=== PATIENT | male | born 1940 | race Caucasian/White ===

== ENCOUNTER → 2018-11-16 | Outpatient (CLI) | payer MEDICARE ==
--- NOTE | 2018-11-16 14:54 | REP ---
REASON: Pain after trauma. RIGHT RIBS: FINDINGS: Five views of the ribs show no acute fracture or destructive osseous lesion. The accompanying frontal view of the chest shows no cardiomegaly, infiltrates, effusions or pneumothoraces. IMPRESSION: Negative ribs series. Electronically Signed by Kenan St DO 11/16/2018 03:15 P
== END ==
LOC: M WUC 10:37
PROVIDERS: ATTEND Physician Assistant
DX: S20.211A Contusion of right front wall of thorax, initial encounter (principal); X58.XXXA Exposure to other specified factors, initial encounter; Y92.89 Other specified places as the place of occurrence of the external cause

== ENCOUNTER 2019-09-19 04:09 | Observation (INO) | payer MEDICARE ==
[~2019-09-19] VITALS: Ht 170.2 cm; Wt 93.6 kg
[2019-09-19] MEDS ORDERED: METF500T13 PO (04:21)
[2019-09-19] MEDS ORDERED: LOSA50TA88 PO (04:21)
[2019-09-19] MEDS ORDERED: METF-839 PO (04:21)
[2019-09-19] MEDS ORDERED: GLIM4TAB5 PO (04:21)
[2019-09-19] MEDS ORDERED: ZOLO100T PO (04:23)
[2019-09-19] MEDS ORDERED: SIMV10TA21 PO (04:23)
[2019-09-19] MEDS ORDERED: NS 500 ML IV ONE ×2 (04:30→08:30)
[2019-09-19 04:58] LABS: APPEARANCE, URINE CLEAR (CLEAR); BACTERIA, URINE AUTO NEGATIVE (NEGATIVE); BILIRUBIN, URINE AUTO NEGATIVE (NEGATIVE); BLOOD, URINE BLOOD 1+ (NEGATIVE); COLOR, URINE STRAW (YELLOW); GLUCOSE, URINE (UA) AUTO 1+ mg/dL (NEGATIVE); KETONE, URINE AUTO NEGATIVE (NEGATIVE); LEUKOCYTE ESTERASE, URINE AUTO NEGATIVE (NEGATIVE); NITRITE, URINE AUTO NEGATIVE (NEGATIVE); PROTEIN, URINE AUTO 1+ mg/dL (NEGATIVE); RBC, URINE AUTO 10 /HPF (0-3); SPECIFIC GRAVITY URINE AUTO 1.012 (1.002-1.035); SQUAMOUS EPITHELIAL CELL UR AU 0 /HPF (0-6); UROBILINOGEN, URINE AUTO 0.2 mg/dL (0.0-2.0); WBC, URINE AUTO 0 /HPF (0-3)
[2019-09-19 05:07] LABS: BASO % 0.5 % (0.0-1.0); EOS # 0.1 10^3/uL (0.0-0.5); EOS % 1.2 % (0.0-3.0); HEMATOCRIT 44.6 % (42.0-52.0); HEMOGLOBIN 14.8 g/dl (13.5-17.5); LYMPH # 0.6 10^3/uL (1.5-5.0); LYMPH % 6.9 % (24.0-44.0); MEAN CORPUSCULAR HEMOGLOBIN 29.9 pg (27.0-33.0); MEAN CORPUSCULAR HGB CONC 33.2 g/dl (32.0-36.5); MEAN CORPUSCULAR VOLUME 90.1 fl (80.0-96.0); MONO # 0.5 10^3/uL (0.0-0.8); MONO % 6.2 % (0.0-5.0); NEUTROPHILS # 7.3 10^3/uL (1.5-8.5); NEUTROPHILS % 84.7 % (36.0-66.0); PLATELET COUNT, AUTOMATED 140 10^3/uL (150-450); RED BLOOD COUNT 4.95 10^6/uL (4.30-6.10); WHITE BLOOD COUNT 8.6 10^3/uL (4.0-10.0)
[2019-09-19 05:15] LABS: INR 1.02; PROTHROMBIN TIME 13.1 SECONDS (11.8-14.0)
[2019-09-19] MEDS ORDERED: MORPHINE 2 MG/ML 1ML VIAL (J2270) IV ONE (05:15)
[2019-09-19 05:16] LABS: PARTIAL THROMBOPLASTIN TIME 29.5 SECONDS (25.0-38.4)
[2019-09-19 05:39] LABS: BILIRUBIN,DIRECT 0.1 MG/DL (0.0-0.2); BILIRUBIN,TOTAL 0.5 MG/DL (0.2-1.0); CALCIUM LEVEL 8.3 MG/DL (8.8-10.2); CREATININE FOR GFR 1.49 MG/DL (0.70-1.30); GLOMERULAR FILTRATION RATE 48.6 (>42); POTASSIUM SERUM 4.4 MEQ/L (3.5-5.1); TOTAL PROTEIN 6.9 GM/DL (6.4-8.2)
[2019-09-19] MEDS ORDERED: TAMSULOSIN 0.4 MG CAP PO ONE (06:00)
[2019-09-19] MEDS ORDERED: KETOROLAC 30 MG/ML 1ML VIAL IV ONE (06:00)
--- NOTE | 2019-09-19 06:39 | REPVR ---
PROCEDURE INFORMATION: Exam: CT Abdomen And Pelvis Without Contrast Exam date and time: 09/19/2019 5:51 AM Age: 79 years old Clinical indication: Abdominal pain; Flank; Left; Additional info: Llq pain/l colic TECHNIQUE: Imaging protocol: Computed tomography of the abdomen and pelvis without contrast. Radiation optimization: All CT scans at this facility use at least one of these dose optimization techniques: automated exposure control; mA and/or kV adjustment per patient size (includes targeted exams where dose is matched to clinical indication); or iterative reconstruction. COMPARISON: No relevant prior studies available. FINDINGS: Lungs: There is bilateral posterior dependent lung atelectasis. Liver: There is 2.2 cm and 2.4 cm right hepatic lobe simple cysts. Gallbladder and bile ducts: Normal. No calcified stones. No ductal dilation. Pancreas: Normal. No ductal dilation. Spleen: The spleen is mildly enlarged measuring 14.9 cm in maximum dimension.. Adrenals: Normal. No mass. Kidneys and ureters: There is a 1-2 mm right renal stone. There is no right ureteral stone or hydronephrosis. There is a 1 cm right upper renal pole cyst measuring high internal density of 42 Hounsfield units best seen on axial image 66. There are 2 stones collectively measuring around 5 mm in the distal left ureter with moderate proximal hydronephrosis and hydroureter with extensive left perinephric and periureteral stranding in addition to fluid in the perinephric sprays. There is a 3-4 mm left lower renal pole stone. Stomach and bowel: There is sigmoid colon diverticulosis. Appendix: No evidence of appendicitis. Intraperitoneal space: Unremarkable. No free air. No significant fluid collection. Vasculature: There is mild aortic mural calcifications. Lymph nodes: Unremarkable. No enlarged lymph nodes. Bladder: Unremarkable as visualized. Reproductive: Unremarkable as visualized. Bones/joints: The patient is status post L4 laminectomy with surgical fixation of L4 and L5 with grossly intact rods and screws. There is diffuse lumbar spine facet arthrosis most pronounced distally. There is significant L5-S1 disc degenerative changes. There is grade 1 retrolisthesis of L3 on L4. Soft tissues: Unremarkable. IMPRESSION: 1. Two contiguous stones collectively measuring 5 mm in the distal left ureter with moderate proximal hydronephrosis coupled with extensive perinephric and periureteral edema in addition to fluid in the perirenal space suggestive of forniceal rupture. Underlying infection cannot be excluded. 2. 1-2 mm right renal nonobstructing stone. 3. 1 cm right upper renal pole cyst measuring higher than simple fluid density. This possibly represents a cyst containing proteinaceous material or blood products-[place] 2 F. follow-up and further characterization with ultrasound and or MRI with contrast is suggested. 4. Mild splenomegaly. 5. Simple right hepatic lobe cyst. 6. Sigmoid colon diverticulosis. Electronically signed by: Mario Galan On 09/19/2019 06:38:57 AM
[2019-09-19] MEDS ORDERED: hydrALAZINE 20MG/ML 1ML VIAL (J0360 PER 20MG) IV STA (06:45)
--- NOTE | 2019-09-19 07:57 | REPVR ---
PROCEDURE INFORMATION: Exam: US Retroperitoneal Limited, Kidneys Exam date and time: 09/19/2019 7:40 AM Age: 79 years old Clinical indication: Abdominal pain; Flank; Left; Additional info: Abnormal CT - see result - per rad TECHNIQUE: Imaging protocol: Real-time ultrasound of the retroperitoneum with image documentation. Examination was focused on the kidneys. COMPARISON: CT ABD PELVIS W/O CONTRAST 09/19/2019 5:44 AM FINDINGS: Right kidney: The right kidney measures 10.8 x 4.7 x 4.9 centimetres.. There is a right mid renal pole stone measuring 6 mm. There is a 5 mm right lower renal pole stone. The there is no right-sided hydronephrosis. There is a 9 mm right upper renal pole hypoechoic cyst however posterior acoustic enhancement is not seen. There is a isoechoic area in the right mid renal pole extending to the medulla measuring 2.5 x 2.6 cm. Left kidney: The left kidney measures a 0.9 x 5.1 x 5.9 cm. There is mild left renal mass, stone or cyst. There is mild left-sided hydronephrosis. Bladder: There is minimal distention of the urinary bladder which appears grossly unremarkable. Ureteral jets are not seen . IMPRESSION: 1. Mild left-sided hydronephrosis. 2. Right-sided nephrolithiasis with no hydronephrosis. 3. 9 mm right upper renal pole hypoechoic nodule corresponding to the dense nodule seen on CT scan without posterior acoustic enhancement. This could represent a cyst however its simple nature could not be established on this exam. Further characterization with MRI with contrast or follow-up ultrasound in few months is suggested. 4. Focal isoechoic area in the mid right renal pole possibly representing prominent column of Celestino. This can be better evaluated with the above suggested MRI. Electronically signed by: Mario Galan On 09/19/2019 07:57:23 AM
[2019-09-19] MEDS ORDERED: IBUP1TAB6 PO (08:45)
[2019-09-19] MEDS ORDERED: CYAN100049 PO (08:45)
[2019-09-19] MEDS ORDERED: VITMTA PO (08:45)
[2019-09-19] MEDS ORDERED: VITAD1000T PO (08:45)
[2019-09-19] MEDS ORDERED: LIDOCAINE 2% 100MG/5ML SDV (FOR ANES.) As Ordered ONE (09:05)
[2019-09-19] MEDS ORDERED: propofoL 200 MG/20 ML VIAL As Ordered ONE (09:05)
[2019-09-19] MEDS ORDERED: fentaNYL 100 MCG/2 ML INJECTION (J3010) As Ordered ONE ×2 (09:05→12:00)
[2019-09-19] MEDS ORDERED: ONDANSETRON 4MG/2ML VIAL As Ordered ONE (09:06)
[2019-09-19] MEDS ORDERED: dexameTHASONE 4 MG/ML 1ML VIAL (J1100 PER 1MG) As Ordered ONE (09:06)
[2019-09-19] MEDS ORDERED: hydrALAZINE 20MG/ML 1ML VIAL (J0360 PER 20MG) IV PRN (09:15)
--- NOTE | 2019-09-19 09:27 | HPEPDOC ---
[facility] Medical History & Physical Date of Admission Sep 19, 2019 Date of Service: Sep 19, 2019 Attending Physician: Sharon Pang MD History and Physical CHIEF COMPLAINT: abdominal pain HISTORY OF PRESENT ILLNESS: The patient is a 79-year-old male with a past mental history of hypertension, diabetes mellitus type 2, hyperlipidemia, history of kidney stones who presents to [facility] with the chief complaint of acute onset of left- sided groin and abdominal/flank pain. Patient states that at approximately 11 PM on 09/18/19 he experienced sudden left lower abdominal pain that woke him up from sleep. Pain radiated to the left groin and around the left flank, 10/10, sharp, constant, similar to an episode 1 year ago of a kidney stone that he eventually passed. The patient took an ibuprofen 800 mg x 1, oxycontin x 1 but with no relief. He later had episodes of nonbloody vomiting x 2, nausea, The patient woke his up who then took him to the ER. The patient admits to eating and drinking well, urinating normal. Denies chest pain, shortness of breath, lightheadedness, dizziness, cough, fevers, chills, rashes, recent illness. In the emergency room, blood pressure systolic was as high as 388773 mmHg, he was given 5 mg of IV hydralazine which helped decrease his blood pressure slightly. Pain was likely the cause of his uncontrolled hypertension. CT abdomen and pelvis with contrast showed 2 stones collectively measuring 5 mm in the distal left ureter with moderate proximal hydronephrosis coupled with extensive perinephric and periureteral edema in addition to fluid in the perirenal space suggestive of forniceal rupture. There was also 12 millimeter right renal m onitor instructed stone and a 170 her right upper pole cyst measuring higher than simple fluid density. Follow-up ultrasound or MRI was suggested. Urology was consulted from ER and it was suggested to take to OR for surgery. Admitting diagnosis was Left forniceal rupture 2/2 to two obstructing distal left ureteral stones, hypertensive urgency. At time of admission , patient denied chest pain, n/v/d, fevers or chills. ROS: Negative except for what is mentioned above. PAST MEDICAL HISTORY: 1. HTN 2. Hx of kidney stones 3. DM type II, controlled 4. HLD 5. Obsessive compulsive disorder 6. Vitamin D deficiency 7. Vitamin B12 deficiency 8. Hx of palpitations? 9. Mild memory loss,age related PAST SURGICAL HISTORY: 1. Left foot bone fusion, 04/2019 2. L3-L5 bone fusion 3. Tonsillectomy 4. Melanoma skin removal on nose SOCIAL HISTORY: Denies smoking, illicit drug use. Drinks a glass of wine nightly as prescribed by PCP. PCP- Dr. Heather Nam, [place]- Dr. San, FAMILY HISTORY: Father: Dementia. at 91 y/o Mother: Depression, HTN, DM type II. at 74 y/o. Siblings: sister #1- cancer, breast. 63 y/o. sister #2- lupus, CAD. 60 y/o. ALLERGIES: Please see below. HOME MEDICATIONS: Please see below. PHYSICAL EXAMINATION: CONSTITUTIONAL: No acute distress, resting comfortably, AAO x 3 EYES: PERRLA, EOM intact HENT, MOUTH: Normocephalic, atraumatic, moist mucous membranes, NECK: SUPPLE, no JVD, no lymphadenopathy, no carotid bruit CV: Regular rate and rhythm, S1S2 normal, no murmurs/rubs/gallops RESPIRATORY: Clear to auscultation bilaterally, no rales/rhonchi/wheezes GI: Obese abdomen, tenderness of palpation to the left lower quadrant, no CVA tenderness, no groin tenderness. BS positive in 4 quadrants, soft, nondistended, no rebound or guarding, no organomegaly : Deferred MUSCULOSKELETAL: Normal ROM. No cyanosis, clubbing, swelling, joint deformity, extremity edema INTEGUMENTARY: Intact, no rashes, no lesions, no erythema NEUROLOGIC: Cranial Nerves II-XII are intact, no focal deficits PSYCHIATRIC: Mood and affect are normal LABORATORY DATA: Please see below IMAGING: CT abd/pelvis: 1. Two contiguous stones collectively measuring 5 mm in the distal left ureter with moderate proximal hydronephrosis coupled with extensive perinephric and periureteral edema in addition to fluid in the perirenal space suggestive of forniceal rupture. Underlying infection cannot be excluded. 2. 1-2 mm right renal nonobstructing stone. 3. 1 cm right upper renal pole cyst measuring higher than simple fluid density. This possibly represents a cyst containing proteinaceous material or blood products-[place]ak 2 F. follow-up and further characterization with ultrasound and or MRI with contrast is suggested. 4. Mild splenomegaly. 5. Simple right hepatic lobe cyst. 6. Sigmoid colon diverticulosis. Renal US: 1. Mild left-sided hydronephrosis. 2. Right-sided nephrolithiasis with no hydronephrosis. 3. 9 mm right upper renal pole hypoechoic nodule corresponding to the dense nodule seen on CT scan without posterior acoustic enhancement. This could represent a cyst however its simple nature could not be established on this exam. Further characterization with MRI with contrast or follow-up ultrasound in few months is suggested. 4. Focal isoechoic area in the mid right renal pole possibly representing prominent column of Celestino. This can be better evaluated with the above suggested MRI. ASSESSMENT: 79 y/o M admitted for left forniceal rupture 2/2 to two obstructing distal left ureteral stones, hypertensive urgency PLAN: 1. Left forniceal rupture 2/2 to obstructing stones. NPO, pain regimen in place, OR today. Urology consulted. 2. Hypertensive urgency. Hx of controlled HTN, likely 2/2 to uncontrolled pain. Hydralazine helped. NPO so can give another dose of IV hydralazine PRN. 3. DM type II. States to be well controlled. ISS, FS Q6hrs, NPO and will start on consistent carb diet when out of surgery. 4. OCD. Stable. C/w home meds when taking PO 5. HLD. Resume home meds after surgery. 6. DVT px. SCDs, TEDs. DISPOSITION: Plan is discharge home when medically improved. Vital Signs Vital Signs Date Time Temp Pulse Resp B/P (MAP) Pulse Ox O2 Delivery O2 Flow Rate FiO2 09/19/19 07:31 70 95 09/19/19 07:30 142/68 (92) 09/19/19 05:16 16 09/19/19 04:10 97.9 Room Air Laboratory Data Labs 24H Laboratory Tests 2 09/19/19 04:48: Urine Color STRAW, Urine Appearance CLEAR, Urine pH 6.0, Urine Specific [place] 1.012, Urine Protein 1+H, Urine Glucose (Auto)(UA) 1+H, Urine Ketones (Auto) NEGATIVE, Urine Blood 1+H, Urine Nitrite NEGATIVE, Urine Bilirubin NEGATIVE, Urine Urobilinogen 0.2, Urine Leukocyte Esterase (Auto) NEGATIVE, Urine WBC (Auto) 0, Urine RBC (Auto) 10H, Urine Hyaline Casts (Auto) 0, Urine Bacteria (Auto) NEGATIVE, Urine Squamous Epithelial Cells 0, Urine Sperm (Auto) 09/19/19 04:51: Immature Granulocyte % (Auto) 0.5, Neutrophils (%) (Auto) 84.7H, Lymphocytes (%) (Auto) 6.9L, Monocytes (%) (Auto) 6.2H, Eosinophils (%) (Auto) 1.2, Basophils (%) (Auto) 0.5, Neutrophils # (Auto) 7.3, Lymphocytes # (Auto) 0.6L, Monocytes # (Auto) 0.5, Eosinophils # (Auto) 0.1, Basophils # (Auto) 0.0, Nucleated Red Blood Cells % (auto) 0.0, Prothrombin Time 13.1, Prothromb Time International Ratio 1.02, Activated Partial Thromboplast Time 29.5, Anion Gap 10, Glomerular Filtration Rate 48.6, Calcium Level 8.3L, Total Bilirubin 0.5, Direct Bilirubin 0.1, Aspartate Amino Transf (AST/SGOT) 20, Alanine Aminotransferase (ALT/SGPT) 32, Alkaline Phosphatase 45, Total Protein 6.9, Albumin 4.0, Albumin/Globulin Ratio 1.4, Lipase 121 09/19/19 08:21: CBC/BMP Laboratory Tests 09/19/19 04:51 Microbiology Microbiology 09/19/19 Blood Culture, Received Pending Home Medications Scheduled Cholecalciferol (Vitamin D3) (Vitamin D3) 1,000 Unit Tablet, 1,000 UNITS PO DAILY Cyanocobalamin (Vitamin B-12) (Vitamin B-12) 1,000 Mcg Tablet, 1,000 MCG PO DAILY Glimepiride (Glimepiride) 4 Mg Tablet, 4 MG PO BID Losartan Potassium (Losartan Potassium) 50 Mg Tablet, 50 MG PO QHS Metformin HCl (Metformin HCl) 500 Mg Tablet, 500 MG PO QAM Metformin HCl (Metformin HCl) 500 Mg Tablet, 1,000 MG PO QHS Multivitamins (Thera M Plus Tablet) 1 Each Tablet, 1 TAB PO DAILY Sertraline Hcl (Zoloft) 100 Mg Tablet, 100 MG PO DAILY Simvastatin (Simvastatin) 10 Mg Tablet, 10 MG PO QHS Scheduled PRN Acetaminophen (Acetaminophen) 325 Mg Tablet, 650 MG PO Q6HP PRN for pain or fever Allergies Coded Allergies: Penicillins (Verified Allergy, Mild, rash, 09/19/19) hydrocodone (Verified Allergy, Mild, rash, 09/19/19) A-FIB/CHADSVASC A-FIB History Current/History of A-Fib/PAF?: No Current PO Anticoag Therapy: No Age/Risk Factor Scoring CHADSVASC: CHADSVASC Response (Comments) Value Age Risk Factor Age >/= 75 years old 2 Gender Risk Factor Male 0 Hx of CHF No 0 Hx of HTN Yes 1 Hx of Stroke/TIA/or VTE No 0 Hx of Diabetes Yes 1 Hx of Vascular Disease No 0 Total 4 Treatment Treatment ordered: NONE Other anticoagulant ordered: Sharon Sanchez MD Sep 19, 2019 09:27
[2019-09-19] MEDS ORDERED: GLUCAGON INJ 1MG VIAL SC PRN (09:45)
[2019-09-19] MEDS ORDERED: GLUCOSE 4GM CHEW TABLET PO PRN (09:45)
[2019-09-19] MEDS ORDERED: MORPHINE 2 MG/ML 1ML VIAL (J2270) IV PRN (09:45)
[2019-09-19] MEDS ORDERED: DEXTROSE 50% 50 ML SYRINGE IV PRN (09:45)
[2019-09-19] MEDS ORDERED: ISOVUE-300 61% 50ML VIAL As Ordered ONE (10:58)
[2019-09-19] MEDS ORDERED: ceFAZolin 2 GM/D5W 50 ML IV BAG (J0690 PER 500MG) As Ordered ONE (11:12)
--- NOTE | 2019-09-19 11:26 | SMCUROLCON ---
Urology Consultation General Date of Consultation 09/19/19 Reason For Consultation This patient is seen for Hypertensive Urgency. History of Present Illness This is a 79 y/o M w/ a PMH significant for HTN, DM2, and HL, presenting to the ER w/ worsening L flank pain since yesterday evening. The patient notes the pain came on suddenly. It was associated w/ n/v. He denies dysuria or fevers/chills. Despite pain medication in the ER he continued to have severe pain. A noncontrast CT A/P done in the ER was notable for two contiguous stones collectively measuring 5 mm in the distal L ureter w/moderate proximal hydronephrosis, extensive perinephric and periureteral edema in addition to fluid in the perirenal space suggestive of forniceal rupture. It was also notable fora complex appearing R renal cyst. Past Medical History Medical History see HPI Surgical Hstory b/l cataract surgery L ankle surgery Medications Current Medications Current Medications Medications (Trade) Dose Ordered Sig/Raj Route PRN Reason Start Time Stop Time Status Last Admin Dose Admin Dextrose (Dextrose 50%) 25 ml ASDIRECTED PRN IV SEE LABEL COMMENTS 09/19/19 09:45 Glucagon (Glucagon) 1 mg ASDIRECTED PRN SC SEE LABEL COMMENTS 09/19/19 09:45 Glucose (Glucose) 16 GM ASDIRECTED PRN PO SEE LABEL COMMENTS 09/19/19 09:45 Home Med (Med Rec Complete!) ASDIRECTED XX 09/19/19 08:45 09/19/19 08:52 DC Hydralazine HCl (Apresoline) 5 mg STAT STAT IV 09/19/19 06:45 09/19/19 06:46 DC 09/19/19 06:55 Hydralazine HCl (Apresoline) 10 mg Q6HP PRN IV HYPERTENSION 09/19/19 09:15 Insulin Human Lispro (HumaLOG INSULIN) SEE PROTOCOL TABLE Q6H SC 09/19/19 12:00 Morphine Sulfate (Morphine Sulfate Inj) 1 mg Q6HP PRN IV MODERATE/SEVERE PAIN (PS 5-10) 09/19/19 09:45 Sodium Chloride 1,000 ml @ 100 mls/hr Q10H IV 09/19/19 13:30 Allergies Allergies: Coded Allergies: Penicillins (Verified Allergy, Mild, rash, 09/19/19) hydrocodone (Verified Allergy, Mild, rash, 09/19/19) Review of Systems Constitutional: Denies: Fever, Chills, Sweats, Weakness, Malaise, Other Skin: Denies: Rash, Lesions, Breakdown, Nail Changes Pulmonary: Denies: Dyspnea, Cough Cardiovascular: Denies Chest Pain, Denies Palpitations Gastrointestinal: Reports: Nausea, Vomiting Genitourinary: Denies: Dysuria, Frequency, Incontinence, Hematuria Musculoskeletal: Reports: Back Pain (L flank) Neurological: Denies: Weakness, Numbness, Incoordination, Change in Speech Psych: Reports: Mood Normal Physical Examination General Exam: Alert, Cooperative, No Acute Distress Chest Exam: Normal air movement Heart Exam: Regular Rhythm Abdomen Exam: Soft Skin Exam: Nl turgor and temperature Neuro Exam: Normal Speech Psych Exam: Mental status NL, Mood NL Vital Signs/I&O Vital Signs Date Time Temp Pulse Resp B/P (MAP) Pulse Ox O2 Delivery O2 Flow Rate FiO2 09/19/19 10:45 97.5 69 20 159/76 (103) 94 09/19/19 04:10 Room Air I&O- Last 24 Hours up to 6 AM 09/19/19 06:00 Intake Total 500 ml Balance 500 ml Laboratory Data 24H Labs Laboratory Tests 2 09/19/19 04:48: Urine Color STRAW, Urine Appearance CLEAR, Urine pH 6.0, Urine Specific [place] 1.012, Urine Protein 1+H, Urine Glucose (Auto)(UA) 1+H, Urine Ketones (Auto) NEGATIVE, Urine Blood 1+H, Urine Nitrite NEGATIVE, Urine Bilirubin NEGATIVE, Urine Urobilinogen 0.2, Urine Leukocyte Esterase (Auto) NEGATIVE, Urine WBC (Auto) 0, Urine RBC (Auto) 10H, Urine Hyaline Casts (Auto) 0, Urine Bacteria (Auto) NEGATIVE, Urine Squamous Epithelial Cells 0, Urine Sperm (Auto) 09/19/19 04:51: Immature Granulocyte % (Auto) 0.5, Neutrophils (%) (Auto) 84.7H, Lymphocytes (%) (Auto) 6.9L, Monocytes (%) (Auto) 6.2H, Eosinophils (%) (Auto) 1.2, Basophils (%) (Auto) 0.5, Neutrophils # (Auto) 7.3, Lymphocytes # (Auto) 0.6L, Monocytes # (Auto) 0.5, Eosinophils # (Auto) 0.1, Basophils # (Auto) 0.0, Nucleated Red Blood Cells % (auto) 0.0, Prothrombin Time 13.1, Prothromb Time International Ratio 1.02, Activated Partial Thromboplast Time 29.5, Anion Gap 10, Glomerular Filtration Rate 48.6, Calcium Level 8.3L, Total Bilirubin 0.5, Direct Bilirubin 0.1, Aspartate Amino Transf (AST/SGOT) 20, Alanine Aminotransferase (ALT/SGPT) 32, Alkaline Phosphatase 45, Total Protein 6.9, Albumin 4.0, Albumin/Globulin Ratio 1.4, Lipase 121 09/19/19 08:21: Coronavirus (COVID-19)(PCR) NEGATIVE CBC/BMP Laboratory Tests 09/19/19 04:51 Microbiology Microbiology 09/19/19 Blood Culture, Received Pending Assessment This is a 79 y/o M presenting w/ a likely L forniceal rupture 2/2 two obstructing distal L ureteral stones. Given the forcineal rupture, it was recommended that he be taken to the OR today for cystoscopy, L ureteroscopy w/ laser lithotripsy, and L ureteral stent placement. After a discussion of the risks and benefits, informed consent was signed. Plan - to OR now for surgery - 2g ancef OCOR (patient's penicillin allergy was noted to be a mild rash) - NPO - may have regular diet postop - w/u of R renal cyst will be done on an outpt basis w/ CT A/P w/ IV contrast - remainder care for HTN by hospitalist service postop ISAIAH STOCK MD Sep 19, 2019 11:25
[2019-09-19] MEDS ORDERED: ePHEDrine SULFATE 25 MG/5 ML(5MG/ML) SYRINGE As Ordered ONE (11:34)
[2019-09-19] MEDS ORDERED: MIDAZOLAM INJ 2MG/2ML VIAL (J2250 PER 1MG) As Ordered ONE (11:40)
[2019-09-19] MEDS ORDERED: ceFAZolin SOD 2 GM in IV 1 EA IV ONE (12:00)
[2019-09-19] MEDS ORDERED: HumaLOG INSULIN (NovoLOG) PER UNIT SC SCH (12:00)
--- NOTE | 2019-09-19 12:22 | ECGEPIP ---
[facility] - ED Test Date: 2019-09-19 Pat Name: JANNET FELIZ SR Department: Room: [facility] Gender: Male [employer]: chyna : [id number] Requested By: Kari Kern Order Number: [id number] Reading MD: Kari Kern Measurements Intervals [place] Rate: 73 P: 30 MN: 181 QRS: -7 QRSD: 89 T: 10 QT: 370 QTc: 410 Interpretive Statements SINUS RHYTHM NONSPECIFIC ST T WAVE CHANGES NO PRIOR ECG FOR COMPARISON Electronically Signed on 09-19-2019 12:22:30 EDT by Kari Kern
[2019-09-19] MEDS ORDERED: ONDANSETRON 4MG/2ML VIAL IV PRN (12:45)
[2019-09-19] MEDS ORDERED: oxyCODONE 5MG TAB PO PRN (12:45)
[2019-09-19] MEDS ORDERED: fentaNYL 100 MCG/2 ML INJECTION (J3010) IV PRN (12:45)
[2019-09-19] MEDS ORDERED: KETOROLAC 30 MG/ML 1ML VIAL IV PRN (12:45)
[2019-09-19] MEDS ORDERED: METOCLOPRAMIDE INJ 10MG/2ML VIAL (J2765 PER 1) IV PRN (12:45)
[2019-09-19] MEDS ORDERED: LR 1,000 ML IV SCH (12:45)
[2019-09-19] MEDS ORDERED: NON-325T5 PO (12:47)
[2019-09-19] MEDS ORDERED: KETOROLAC 30 MG/ML 1ML VIAL As Ordered ONE (12:59)
[2019-09-19] MEDS ORDERED: PERCOCET 5MG/325MG TAB PO PRN (13:00)
[2019-09-19] MEDS ORDERED: ACETAMINOPHEN TAB 650MG DOSE (2X325MG) PO PRN (13:00)
--- NOTE | 2019-09-19 13:05 | DS.PDOC ---
Discharge Summary General Date of Admission Sep 19, 2019 at 09:03 Date of Discharge 09/19/19 Attending Physician: Sharon Pang MD Specialist/Consultants Involve: ISAIAH STOCK MD Discharge Summary HISTORY OF PRESENT ILLNESS: The patient is a 79-year-old male with a past mental history of hypertension, diabetes mellitus type 2, hyperlipidemia, history of kidney stones who presents to [facility] with the chief complaint of acute onset of left- sided groin and abdominal/flank pain. Patient states that at approximately 11 PM on 09/18/19 he experienced sudden left lower abdominal pain that woke him up from sleep. Pain radiated to the left groin and around the left flank, 10/10, sharp, constant, similar to an episode 1 year ago of a kidney stone that he eventually passed. The patient took an ibuprofen 800 mg x 1, oxycontin x 1 but with no relief. He later had episodes of nonbloody vomiting x 2, nausea, The patient woke his up who then took him to the ER. The patient admits to eating and drinking well, urinating normal. Denies chest pain, shortness of breath, lightheadedness, dizziness, cough, fevers, chills, rashes, recent illness. In the emergency room, blood pressure systolic was as high as [id number] mmHg, he was given 5 mg of IV hydralazine which helped decrease his blood pressure slightly. Pain was likely the cause of his uncontrolled hypertension. CT abdomen and pelvis with contrast showed 2 stones collectively measuring 5 mm in the distal left ureter with moderate proximal hydronephrosis coupled with extensive perinephric and periureteral edema in addition to fluid in the perirenal space suggestive of forniceal rupture. There was also 12 millimeter right renal monitor instructed stone and a 170 her right upper pole cyst measuring higher than simple fluid density. Follow-up ultrasound or MRI was suggested. Urology was consulted from ER and it was suggested to take to OR for surgery. Admitting diagnosis was Left forniceal rupture 2/2 to two obstructing distal left ureteral stones, hypertensive urgency. At time of admission , patient denied chest pain, n/v/d, fevers or chills. HOSPITAL COURSE: Patient underwent cystoscopy, L ureteroscopy w/ laser lithotripsy, and L ureteral stent placement later in the day on 09/19/19. BP normalized. As per urology, there is expected hematuria but that urology office will be calling patient on 09/20/2019 to make follow up appointment. He denied increased pain after procedure and blood pressure had normalized. Due to resolution of multiple issues, it was decided to discharge home to follow up with urology after weekend. If patient should have increased bleeding he should call urology office or come to ER to be evaluated. Patient denies chest pain, n/v/d, shortness of breath, fevers or chills. ROS: Negative except for what is mentioned above. PAST MEDICAL HISTORY: 1. HTN 2. Hx of kidney stones 3. DM type II, controlled 4. HLD 5. Obsessive compulsive disorder 6. Vitamin D deficiency 7. Vitamin B12 deficiency 8. Hx of palpitations? 9. Mild memory loss,age related PAST SURGICAL HISTORY: 1. Left foot bone fusion, 04/2019 2. L3-L5 bone fusion 3. Tonsillectomy 4. Melanoma skin removal on nose SOCIAL HISTORY: Denies smoking, illicit drug use. Drinks a glass of wine nightly as prescribed by PCP. PCP- Dr. Heather Nam, [place]- Dr. San, FAMILY HISTORY: Father: Dementia. at 91 y/o Mother: Depression, HTN, DM type II. at 74 y/o. Siblings: sister #1- cancer, breast. 63 y/o. sister #2- lupus, CAD. 60 y/o. ALLERGIES: Please see below. HOME MEDICATIONS: Please see below. PHYSICAL EXAMINATION: CONSTITUTIONAL: No acute distress, resting comfortably, AAO x 3 EYES: PERRLA, EOM intact HENT, MOUTH: Normocephalic, atraumatic, moist mucous membranes, NECK: SUPPLE, no JVD, no lymphadenopathy, no carotid bruit CV: Regular rate and rhythm, S1S2 normal, no murmurs/rubs/gallops RESPIRATORY: Clear to auscultation bilaterally, no rales/rhonchi/wheezes GI: Obese abdomen, very mild tenderness of palpation to the left lower quadrant, no CVA tenderness, no groin tenderness. BS positive in 4 quadrants, soft, nondistended, no rebound or guarding, no organomegaly : Deferred MUSCULOSKELETAL: Normal ROM. No cyanosis, clubbing, swelling, joint deformity, extremity edema INTEGUMENTARY: Intact, no rashes, no lesions, no erythema NEUROLOGIC: Cranial Nerves II-XII are intact, no focal deficits PSYCHIATRIC: Mood and affect are normal LABORATORY DATA: Please see below IMAGING: CT abd/pelvis: 1. Two contiguous stones collectively measuring 5 mm in the distal left ureter with moderate proximal hydronephrosis coupled with extensive perinephric and periureteral edema in addition to fluid in the perirenal space suggestive of forniceal rupture. Underlying infection cannot be excluded. 2. 1-2 mm right renal nonobstructing stone. 3. 1 cm right upper renal pole cyst measuring higher than simple fluid density. This possibly represents a cyst containing proteinaceous material or blood products-Bosniak 2 F. follow-up and further characterization with ultrasound and or MRI with contrast is suggested. 4. Mild splenomegaly. 5. Simple right hepatic lobe cyst. 6. Sigmoid colon diverticulosis. Renal US: 1. Mild left-sided hydronephrosis. 2. Right-sided nephrolithiasis with no hydronephrosis. 3. 9 mm right upper renal pole hypoechoic nodule corresponding to the dense nodule seen on CT scan without posterior acoustic enhancement. This could represent a cyst however its simple nature could not be established on this exam. Further characterization with MRI with contrast or follow-up ultrasound in few months is suggested. 4. Focal isoechoic area in the mid right renal pole possibly representing prominent column of Celestino. This can be better evaluated with the above suggested MRI. ASSESSMENT: 79 y/o M admitted for left forniceal rupture 2/2 to two obstructing distal left ureteral stones s/p cystoscopy and ureteroscopy, hypertensive urgen cy PLAN: 1. Left forniceal rupture 2/2 to obstructing stones s/p cystoscopy, L ureter oscopy w/ laser lithotripsy, and L ureteral stent placement. Plan is to follow up with urology after weekend. Hematuria is to be expected but if should worsen, call urology or come to ER for further evaluation. Pain improved. 2. Hypertensive urgency likely 2/2 to pain from ureterolithiasis- Resolved. Hx of controlled HTN and advised to resume home medications. 3. DM type II. C/w home medication. 4. OCD. Stable. C/w home meds. 5. HLD. Resume home meds. DISPOSITION: Discharge home in improved condition and follow up with urology after weekend. TIME SPENT ON DISCHARGE: Greater than 30 minutes. Vital Signs/I&Os Vital Signs Date Time Temp Pulse Resp B/P (MAP) Pulse Ox O2 Delivery O2 Flow Rate FiO2 09/19/19 12:46 73 18 174/88 (116) 97 Nasal Cannula 2 09/19/19 12:25 97 I&O- Last 24 Hours up to 6 AM 09/19/19 05:59 Intake Total 500 ml Balance 500 ml Laboratory Data Labs 24H Laboratory Tests 2 09/19/19 04:48: Urine Color STRAW, Urine Appearance CLEAR, Urine pH 6.0, Urine Specific [place] 1.012, Urine Protein 1+H, Urine Glucose (Auto)(UA) 1+H, Urine Ketones (Auto) NEGATIVE, Urine Blood 1+H, Urine Nitrite NEGATIVE, Urine Bilirubin NEGATIVE, Urine Urobilinogen 0.2, Urine Leukocyte Esterase (Auto) NEGATIVE, Urine WBC (Aut o) 0, Urine RBC (Auto) 10H, Urine Hyaline Casts (Auto) 0, Urine Bacteria (Auto) NEGATIVE, Urine Squamous Epithelial Cells 0, Urine Sperm (Auto) 09/19/19 04:51: Immature Granulocyte % (Auto) 0.5, Neutrophils (%) (Auto) 84.7H, Lymphocytes (%) (Auto) 6.9L, Monocytes (%) (Auto) 6.2H, Eosinophils (%) (Auto) 1.2, Basophils (%) (Auto) 0.5, Neutrophils # (Auto) 7.3, Lymphocytes # (Auto) 0.6L, Monocytes # (Auto) 0.5, Eosinophils # (Auto) 0.1, Basophils # (Auto) 0.0, Nucleated Red Blo od Cells % (auto) 0.0, Prothrombin Time 13.1, Prothromb Time International Ratio 1.02, Activated Partial Thromboplast Time 29.5, Anion Gap 10, Glomerular Filtration Rate 48.6, Calcium Level 8.3L, Total Bilirubin 0.5, Direct Bilirubin 0.1, Aspartate Amino Transf (AST/SGOT) 20, Alanine Aminotransferase (ALT/SGPT) 32, Alkaline Phosphatase 45, Total Protein 6.9, Albumin 4.0, Albumin/Globulin Ratio 1.4, Lipase 121 09/19/19 08:21: Coronavirus (COVID-19)(PCR) NEGATIVE 09/19/19 12:27: Bedside Glucose (Misc Panel) 96 CBC/BMP Laboratory Tests 09/19/19 04:51 FSBS Laboratory Tests Test 09/19/19 12:27 Range/Units Bedside Glucose (Misc Panel) 96 83-110 MG/DL Microbiology Microbiology 09/19/19 Blood Culture, Received Pending Discharge Medications Scheduled Cholecalciferol (Vitamin D3) (Vitamin D3) 1,000 Unit Tablet, 1,000 UNITS PO DAILY, (Reported) Cyanocobalamin (Vitamin B-12) (Vitamin B-12) 1,000 Mcg Tablet, 1,000 MCG PO DAILY, (Reported) Glimepiride (Glimepiride) 4 Mg Tablet, 4 MG PO BID, (Reported) Losartan Potassium (Losartan Potassium) 50 Mg Tablet, 50 MG PO QHS, (Reported) Metformin HCl (Metformin HCl) 500 Mg Tablet, 500 MG PO QAM, (Reported) Metformin HCl (Metformin HCl) 500 Mg Tablet, 1,000 MG PO QHS, (Reported) Multivitamins (Thera M Plus Tablet) 1 Each Tablet, 1 TAB PO DAILY, (Reported) Sertraline Hcl (Zoloft) 100 Mg Tablet, 100 MG PO DAILY, (Reported) Simvastatin (Simvastatin) 10 Mg Tablet, 10 MG PO QHS, (Reported) Scheduled PRN Acetaminophen (Acetaminophen) 325 Mg Tablet, 650 MG PO Q6HP PRN for pain or fever Allergies Coded Allergies: Penicillins (Verified Allergy, Mild, rash, 09/19/19) hydrocodone (Verified Allergy, Mild, rash, 09/19/19) Sharon Pang MD Sep 19, 2019 13:05
[2019-09-19 13:30] VITALS: BP 158/80
[2019-09-19] MEDS ORDERED: NS 1,000 ML IV SCH (13:30)
[2019-09-19 16:00] VITALS: BP 166/82
--- NOTE | 2019-09-20 12:31 | REP ---
REASON FOR EXAM: Placement of left-sided double pigtail stent. 11 seconds of pleuroscopy time was provided to Dr. Nba Boswell for the procedure. Three KUB images were obtained in my absentia using a portable C-arm device. There is a double pigtail stent seen on the left. There is a small amount of contrast opacification in the left renal collecting system. The proximal portion of the stent is in the region of the renal pelvis and the distal portion is in the urinary bladder. Electronically Signed by Kenan St DO 09/20/2019 03:16 P
--- NOTE | 2019-09-23 12:17 | RO ---
DATE OF PROCEDURE: 09/19/2019 PREPROCEDURE DIAGNOSIS: Left ureteral stone. POSTPROCEDURE DIAGNOSIS: Left ureteral stone. PROCEDURE: Cystoscopy, left ureteroscopy with laser lithotripsy and basket extraction of stones, left retrograde pyelogram with intraoperative interpretation of images, left ureteral stent placement. SURGEON: Dr. Nba Boswell SCRAPER LOADER OPERATOR: None. ANESTHESIA: General. OPERATIVE INDICATIONS: This is a 79-year-old male who was found to have a left forniceal rupture due to an obstructing 5 mm distal left ureteral stone as well as a possible stone in his kidney. He was brought to the operating room today for treatment. DESCRIPTION OF PROCEDURE: The patient was brought to the operating room where general anesthesia was induced. Prophylactic antibiotics were infused. He was then placed in dorsal lithotomy position and prepped and draped in the usual sterile fashion. A rigid cystoscope was inserted into the urethral meatus and advanced into the bladder. A guidewire was advanced up the left collecting system. I then went up the left collecting system with a short semi-rigid ureteroscope and within the distal ureter an approximately 6mm stone was seen. The stone was then fragmented into smaller pieces using a 200 micron laser fiber. All the fragments were then removed using a basket. Once that was done, I advanced the ureteral access sheath up the left collecting system and then went up with a flexible ureteroscope. The left kidney was examined using general irrigation. Of note, I could not identify any stone within the left kidney. A retrograde pyelogram was performed and notable for moderate left hydronephrosis and there did not appear to be any extravasation. I then withdrew the ureteroscope along with access sheath and no additional stones were seen within the ureter. I then utilized the wire to advance a 7-Icelandic x 22-32 cm JJ ureteral stent up into the left collecting system. The wire was removed and there were adequate curls of the stent in the left renal pelvis and in the bladder. The bladder was emptied of all fluid and this marked the conclusion of the procedure. The patient was then taken out of the dorsal lithotomy position, awakened from anesthesia and transported to the recovery room in stable condition. Estimated blood loss: 15 mL. Complications: None. Specimen: Kidney stone fragments. Plan: The patient will followup in the clinic in a few weeks for stent removal. Also of note, he had a complex-appearing right renal cyst on his CAT scan. This will need to be worked up with a contrast CT in the future. WESLY
[2019-09-30 16:08] LABS: Ca Ox Monohydrate 20 % (.); Size 4x4 mm (.); Uric Acid 80 % (.)
== END 2019-09-19 17:49 | disposition home or self-care (01) ==
LOC: M ED 04:09 → M ED INP 04:10 → UNDOADMIN 09:03 → ENRESERV 09:17 → M ED INP 13:29 → M PCU 13:29 → UNDODISIN 17:49
PROVIDERS: ADMIT Internal Medicine; ATTEND Internal Medicine
DX: I16.0 Hypertensive urgency (principal); N20.1 Calculus of ureter; I10 Essential (primary) hypertension; E11.9 Type 2 diabetes mellitus without complications; E78.49 Other hyperlipidemia; E55.9 Vitamin D deficiency, unspecified; D51.9 Vitamin B12 deficiency anemia, unspecified; F42.9 Obsessive-compulsive disorder, unspecified; Z79.84 Long term (current) use of oral hypoglycemic drugs; Z79.899 Other long term (current) drug therapy
CPT/HCPCS: 52356; 74176; 74420; 76775; 80048; 80076; 81001; 82365; 83690; 85025; 85610; 85730; 87040; 88300; 93005; 96361; 96374; 96375; 99285; C1769; C1894; C2617; G0378; J0360; J0690; J1100; J1885; J2250; J2270; J2405; J3010; Q9967; U0002

== ENCOUNTER → 2019-10-12 | Outpatient (REF) | payer MEDICARE ==
[~2019-10-12] MED LIST: CYAN100049 PO; GLIM4TAB5 PO; IBUP1TAB6 PO; LOSA50TA88 PO; METF-839 PO; METF500T13 PO; NON-325T5 PO; SIMV10TA21 PO; VITAD1000T PO; VITMTA PO; ZOLO100T PO
[2019-10-12 16:15] LABS: APPEARANCE, URINE CLEAR (CLEAR); BACTERIA, URINE AUTO NEGATIVE (NEGATIVE); BILIRUBIN, URINE AUTO NEGATIVE (NEGATIVE); BLOOD, URINE BLOOD 3+ (NEGATIVE); COLOR, URINE RED (YELLOW); GLUCOSE, URINE (UA) AUTO NEGATIVE (NEGATIVE); KETONE, URINE AUTO NEGATIVE (NEGATIVE); LEUKOCYTE ESTERASE, URINE AUTO 2+ (NEGATIVE); MUCUS, URINE SMALL (NEGATIVE); NITRITE, URINE AUTO NEGATIVE (NEGATIVE); PROTEIN, URINE AUTO 2+ mg/dL (NEGATIVE); RBC, URINE AUTO TNTC /HPF (0-3); SPECIFIC GRAVITY URINE AUTO 1.013 (1.002-1.035); SQUAMOUS EPITHELIAL CELL UR AU 0 /HPF (0-6); UROBILINOGEN, URINE AUTO 0.2 mg/dL (0.0-2.0); WBC, URINE AUTO 16 /HPF (0-3)
== END ==
LOC: M SMT 14:39
PROVIDERS: ATTEND Nurse Practitioner Family
DX: R31.9 Hematuria, unspecified (principal)

== ENCOUNTER → 2020-01-10 | Outpatient (CLI) | payer MEDICARE ==
[~2020-01-10] MED LIST changes: +D31000TA2 PO; -VITAD1000T PO
[2020-01-10 13:23] LABS: CALCIUM LEVEL 8.7 MG/DL (8.8-10.2); CREATININE FOR GFR 1.3 MG/DL (0.70-1.30); GLOMERULAR FILTRATION RATE 56.8 (>42); POTASSIUM SERUM 4.3 MEQ/L (3.5-5.1)
== END ==
LOC: M WUC 10:27
PROVIDERS: ATTEND Urology
DX: N28.89 Other specified disorders of kidney and ureter (principal)

== ENCOUNTER → 2020-01-17 | Outpatient (CLI) | payer MEDICARE ==
[~2020-01-17] MED LIST changes: +ISOVUE-370 76% 100ML VIAL As Ordered ONE
--- NOTE | 2020-01-24 09:41 | REP ---
CT ABDOMEN WITHOUT AND WITH INTRAVENOUS (IV) CONTRAST: WITHOUT ORAL CONTRAST HISTORY: Renal mass. COMPARISON: CT study 09/19/2019. CT CONTRAST DOSE: 100 mL of intravenous Isovue-[address] FINDINGS: Preliminary digital waitstaff captain radiograph demonstrates an unremarkable bowel gas pattern. The patient is status post bilateral transpedicle screw posterior element fusion across L4-5. There are two simple liver cysts seen in the left lobe measuring 2.3 and 2.5 cm in greatest diameter respectively. The spleen is enlarged measuring 15.6 cm in greatest diameter. It contains three small cysts as well measuring 1.0, 1.0, and 1.2 cm in greatest diameter respectively. No adrenal lesion is seen on either side. The previously noted left-sided hydronephrosis and obstructive uropathy changes are resolved. There are two intrarenal calculi in the left kidney collecting system each measuring approximately 3 mm. There is one in the upper pole collecting system on the right 3-mm in size as well. No right or left-sided hydronephrosis is seen. There is a peripheral cyst 1.1 cm in diameter in the right mid kidney. This is slightly higher attenuation than fluid on precontrast image as seen previously. There is no evidence of contrast enhancement on either arterial or delayed phase postcontrast imaging consistent with a small proteinaceous cyst. There is also a 0.9 cm cyst in the lower pole of the right kidney as well. This is a simple cyst. No renal vascular abnormality is seen. There is some vascular calcification in a normal caliber aorta. No retroperitoneal mass or adenopathy is seen. Small and large bowel loops are unremarkable. IMPRESSION: * Renal cortical cyst including a slightly hyperdense cortical cyst in the right mid kidney. * Bilateral intrarenal nephrolithiasis without hydronephrosis. * There are two small hepatic cysts. * Mild splenomegaly with three small splenic cysts. MTDD
== END ==
LOC: M RAD 11:07
PROVIDERS: ATTEND Urology
DX: N28.89 Other specified disorders of kidney and ureter (principal); N20.0 Calculus of kidney; D73.4 Cyst of spleen
CPT/HCPCS: 74170; Q9967

== ENCOUNTER → 2020-10-11 | Outpatient (CLI) | payer MEDICARE ==
[~2020-10-11] MED LIST changes: +ACET32TAB PO; -ISOVUE-370 76% 100ML VIAL As Ordered ONE; -NON-325T5 PO
--- NOTE | 2020-10-11 20:36 | REPVR ---
PROCEDURE INFORMATION: Exam: CT Neck Without Contrast Exam date and time: 10/11/2020 12:55 PM Age: 80 years old Clinical indication: Pain; Other: ? Left stone; Additional info: Sialiolithiasis TECHNIQUE: Imaging protocol: Computed tomography images of the neck without contrast. Radiation optimization: All CT scans at this facility use at least one of these dose optimization techniques: automated exposure control; mA and/or kV adjustment per patient size (includes targeted exams where dose is matched to clinical indication); or iterative reconstruction. COMPARISON: CR RIBS UNLATERAL WITH PA CHEST 11/16/2018 10:46 AM FINDINGS: Nasopharynx: Unremarkable. Oropharynx: Unremarkable. No significant tonsillar enlargement. Hypopharynx: Unremarkable. Larynx: Unremarkable. Normal epiglottis. Retropharyngeal space: Unremarkable. Submandibular/Parotid glands: No sialadenitis or duct dilation. Glands are normal in size. No inflammatory changes. Thyroid: Normal. No enlarged or calcified nodules. Lymph nodes: Unremarkable. No lymphadenopathy. Trachea: Visualized trachea is unremarkable. Lungs: Unremarkable as visualized. Bones/joints: Degenerative spondylosis in the cervical spine. Soft tissues: Unremarkable. No significant soft tissue swelling. IMPRESSION: 1. No sialadenitis or duct dilation. Salivary glands are unremarkable. 2. No acute findings. Electronically signed by: Demetrius Christie On 10/11/2020 20:36:13 PM
== END ==
LOC: M PLAIMG 12:41
PROVIDERS: ATTEND Otolaryngology
DX: K11.5 Sialolithiasis (principal)

== ENCOUNTER → 2021-11-01 | Outpatient (CLI) | payer MEDICARE ==
[~2021-11-01] MED LIST changes: -D31000TA2 PO; +LOSA50TA28 PO; -LOSA50TA88 PO; +VITA100093 PO
[2021-11-01 13:59] LABS: APPEARANCE, URINE TURBID (CLEAR); BACTERIA, URINE AUTO NEGATIVE (NEGATIVE); BILIRUBIN, URINE AUTO NEGATIVE (NEGATIVE); BLOOD, URINE BLOOD NEGATIVE (NEGATIVE); COLOR, URINE YELLOW (YELLOW); GLUCOSE, URINE (UA) AUTO 1+ mg/dL (NEGATIVE); KETONE, URINE AUTO NEGATIVE (NEGATIVE); LEUKOCYTE ESTERASE, URINE AUTO NEGATIVE (NEGATIVE); MUCUS, URINE SMALL (NEGATIVE); NITRITE, URINE AUTO NEGATIVE (NEGATIVE); PROTEIN, URINE AUTO NEGATIVE (NEGATIVE); RBC, URINE AUTO 0 /HPF (0-3); SPECIFIC GRAVITY URINE AUTO 1.025 (1.002-1.035); SQUAMOUS EPITHELIAL CELL UR AU 0 /HPF (0-6); UROBILINOGEN, URINE AUTO 0.2 mg/dL (0.0-2.0); WBC, URINE AUTO 0 /HPF (0-3)
[2021-11-01 14:00] LABS: AMORPHOUS SEDIMENT SMALL (NEGATIVE); CALCIUM OXALATE CRYSTALS SMALL
== END ==
LOC: M PLAIMG 09:14
PROVIDERS: ATTEND Physician Assistant
DX: R39.15 Urgency of urination (principal); M96.1 Postlaminectomy syndrome, not elsewhere classified

== ENCOUNTER → 2021-12-25 | Outpatient (CLI) | payer MEDICARE | LOC: M WUC 13:24 | PROVIDERS: ATTEND Student in an Organized Health Care Education/Training Program | DX: M25.532 Pain in left wrist (principal) ==

== ENCOUNTER → 2023-09-23 | Outpatient (REF) | payer MEDICARE ==
[2023-09-23 18:10] LABS: HEMOGLOBIN A1c 5.6 % (4.0-6.0)
[2023-09-23 18:15] LABS: THYROID STIMULATING HORMONE 3.126 uIU/ML (0.55-4.78)
[2023-09-23 18:17] LABS: FREE T4 1.01 NG/DL (0.89-1.76)
[2023-09-23 18:20] LABS: ALBUMIN 3.7 G/DL (3.2-5.2); ALKALINE PHOSPHATASE 62 U/L (46-116); ALT/SGPT 20 U/L (7.0-40); AST/SGOT 10 U/L (<34); BILIRUBIN,TOTAL 0.5 MG/DL (0.3-1.2); BLOOD UREA NITROGEN 20 MG/DL (9-23); CALCIUM LEVEL 8.7 MG/DL (8.3-10.6); CARBON DIOXIDE LEVEL 24 MMOL/L (20-31); CHLORIDE LEVEL 110 MMOL/L (98-107); CHOLESTEROL LEVEL 155 MG/DL (<200); CHOLESTEROL RISK RATIO 4.69 (<5); CREATININE FOR GFR 1.21 MG/DL (0.70-1.30); GLOMERULAR FILTRATION RATE > 60.0 (>35); GLUCOSE, FASTING 144 MG/DL (74-106); LDL CHOLESTEROL 83.2 MG/DL (<100); POTASSIUM SERUM 4.5 MMOL/L (3.5-5.1); SODIUM LEVEL 139 MMOL/L (136-145); TOTAL PROTEIN 5.9 G/DL (5.7-8.2); TRIGLYCERIDES LEVEL 194 MG/DL (<150)
== END ==
LOC: M SFHCCLAY 10:56
PROVIDERS: ATTEND Nurse Practitioner Family
DX: K21.9 Gastro-esophageal reflux disease without esophagitis (principal); R79.89 Other specified abnormal findings of blood chemistry; F32.A Depression, unspecified; Z87.442 Personal history of urinary calculi; E11.9 Type 2 diabetes mellitus without complications; R29.6 Repeated falls

== ENCOUNTER → 2023-12-04 | Outpatient (CLI) | payer MEDICARE | LOC: M PLALAB 11:54 → M PLAIMG 11:54 | PROVIDERS: ATTEND Physician Assistant | DX: Z87.442 Personal history of urinary calculi (principal); N20.0 Calculus of kidney ==

== ENCOUNTER → 2025-01-19 | Outpatient (CLI) | payer MEDICARE ==
[~2025-01-19] MED LIST changes: -IBUP1TAB6 PO; +SFHIBU600 PO
[2025-01-24 19:06] LABS: TESTOSTERONE FREE (DIRECT) 12.6 pg/mL (30.0-135.0); TESTOSTERONE TOTAL FOR T&D 146.0 ng/dL (250-1100)
== END ==
LOC: M PLALAB 12:17
PROVIDERS: ATTEND Physician Assistant
DX: E29.1 Testicular hypofunction (principal); Z12.5 Encounter for screening for malignant neoplasm of prostate
CPT/HCPCS: 36415; 84402; 84403; G0103